=== PATIENT | female | born 1970 | race Caucasian/White ===

== ENCOUNTER 2017-01-09 10:17 | Emergency (ER) | payer OTHER ==
[~2017-01-09] VITALS: Ht 167.6 cm; Wt 63.6 kg
[~2017-01-09 10:17] MED LIST: NO HOME MEDS; ULTRAM 50MG TAB50 MG PO
[2017-01-09 10:25] VITALS: TEMP 98.3
[2017-01-09 11:21] LABS: ADJUSTED CALCIUM 9.5 mg/dL (8.4-10.2); ALANINE AMINOTRANSFERASE 36 U/L (9-52); ALBUMIN 3.9 gm/dL (3.5-5.0); ALKALINE PHOSPHATASE 117 U/L (50-136); ANION GAP 10 mmol/L (7-16); BASO % 0.4 % (0.0-2.0); BILIRUBIN,TOTAL 0.7 mg/dL (0.0-1.0); BLOOD UREA NITROGEN 11 mg/dL (7-17); CALCIUM 9.4 mg/dL (8.4-10.2); CARBON DIOXIDE 27 mmol/L (22-30); CHLORIDE 103 mmol/L (98-107); CREATININE, serum 0.56 mg/dL (0.52-1.25); EOS % 0.6 % (0-4.0); GLUCOSE 102 mg/dL (74-106); GRAN # 3.7 (1.4-6.5); GRAN % 70.3 % (42.2-75.2); HEMOGLOBIN 12.8 g/dl (12.5-16.0); LYMPH # 1.2 (1.2-3.4); LYMPH % 22.8 % (20.0-51.0); MEAN CELL VOLUME 88 fl (80.0-100.0); MEAN CORPUSCULAR HEMOGLOBIN 30 pg (27.0-31.0); MEAN CORPUSCULAR HGB CONC 34 g/dl (33.0-37.0); MEAN PLATELET VOLUME 10.3 fl (7.4-10.4); MONO # 0.3 (0.1-0.6); MONO % 5.5 % (1.7-9.3); PLATELET COUNT 189 K/mm3 (130-400); POTASSIUM 3.7 mmol/L (3.4-5.0); RED BLOOD COUNT 4.34 M/mm3 (4.10-5.30); REDCELL DISTRIBUTION WIDTH-CV 11.4 % (11.5-14.5); SODIUM 140 mmol/L (137-145); TOTAL PROTEIN 6.7 gm/dL (6.4-8.2); WHITE BLOOD COUNT 5.3 K/mm3 (4.8-10.8)
[2017-01-09 11:22] LABS: C-REACTIVE PROTEIN < 0.5 mg/dL (0.0-0.9); INR 1.1 (0.8-3.0)
[2017-01-09 11:25] LABS: PARTIAL THROMBOPLASTIN TIME 34.8 SECONDS (26.0-37.0)
[2017-01-09 12:09] LABS: PH 8 (5-8); SQUAMOUS EPITHELIAL None Seen /hpf; URINE APPEARANCE Clear; URINE BACTERIA None Seen /hpf; URINE BILIRUBIN Negative (NEGATIVE); URINE BLOOD Negative (NEGATIVE); URINE COLOR Straw; URINE GLUCOSE Negative (NEGATIVE); URINE KETONE Trace (NEGATIVE); URINE RBC 0-2 /hpf; URINE UROBILINOGEN Negative (NEGATIVE); URINE WBC 0-2 /hpf
[2017-01-09 13:33] LABS: TROPONIN-I < 0.012 ng/mL (0.000-0.034)
[2017-01-09] MEDS ORDERED: INDERAL 20MG20 MG PO (14:32)
[2017-01-09 15:13] VITALS: BP 111/58; PULSE 104
== END 2017-01-09 15:15 | disposition home or self-care (01) ==
LOC: COL.ER 10:17
PROVIDERS: Emergency Medicine
DX: E05.90 Thyrotoxicosis, unspecified without thyrotoxic crisis or storm (principal); R07.9 Chest pain, unspecified
CPT/HCPCS: J7030; Q9967

== ENCOUNTER 2020-01-17 22:00 | Emergency (ER) | payer BC ==
[~2020-01-17] VITALS: Ht 165.1 cm; Wt 75.0 kg
[~2020-01-17 22:00] MED LIST changes: +INDERAL 20MG20 MG PO
[2020-01-17 22:07] VITALS: TEMP 98.2
[2020-01-17 22:50] LABS: BASO % 0.4 % (0.0-2.0); EOS # 0.1 (0.0-0.7); EOS % 1.7 % (0-4.0); GRAN # 6.3 (1.4-6.5); GRAN % 74.6 % (42.2-75.2); HEMATOCRIT 41.3 % (37.0-47.0); HEMOGLOBIN 13.9 g/dl (12.5-16.0); LYMPH # 1.4 (1.2-3.4); LYMPH % 16.3 % (20.0-51.0); MEAN CELL VOLUME 93 fl (80.0-100.0); MEAN CORPUSCULAR HEMOGLOBIN 31 pg (27.0-31.0); MEAN CORPUSCULAR HGB CONC 34 g/dl (33.0-37.0); MEAN PLATELET VOLUME 10.3 fl (7.4-10.4); MONO # 0.6 (0.1-0.6); MONO % 6.6 % (1.7-9.3); PLATELET COUNT 220 K/mm3 (130-400); RED BLOOD COUNT 4.44 M/mm3 (4.10-5.30); REDCELL DISTRIBUTION WIDTH-CV 11.9 % (11.5-14.5)
[2020-01-17 23:02] LABS: ALANINE AMINOTRANSFERASE 14 U/L (4-34); ALBUMIN 4.5 gm/dL (3.5-5.0); ALKALINE PHOSPHATASE 94 U/L (50-136); ANION GAP 7 mmol/L (7-16); AST,SGOT 27 U/L (15-37); BILIRUBIN,TOTAL 0.4 mg/dL (0.0-1.0); BLOOD UREA NITROGEN 16 mg/dL (7-17); CALCIUM 9.4 mg/dL (8.4-10.2); CARBON DIOXIDE 26 mmol/L (22-30); CHLORIDE 104 mmol/L (98-107); CREATININE, serum 0.74 (0.52-1.25); GLUCOSE 108 mg/dL (74-106); POTASSIUM 3.9 mmol/L (3.4-5.0); SODIUM 138 mmol/L (137-145); TOTAL PROTEIN 7.9 gm/dL (6.4-8.2)
[2020-01-17 23:12] LABS: C-REACTIVE PROTEIN < 0.5 mg/dL (0.0-0.9)
[2020-01-18 00:39] VITALS: BP 121/70; PULSE 89
== END 2020-01-18 00:54 | disposition home or self-care (01) ==
LOC: COL.ER 22:00
PROVIDERS: Physician Assistant
DX: E03.9 Hypothyroidism, unspecified (principal); R07.89 Other chest pain
CPT/HCPCS: J7030

== ENCOUNTER → 2021-06-17 | Outpatient (CLI) | payer BC ==
[~2021-06-17] MED LIST changes: +NORCO 325 MG-51 TAB PO
== END ==
LOC: MC.RAD 13:00 → COL.RAD 06-18 06:30
DX: C50.411 Malignant neoplasm of upper-outer quadrant of right female breast (principal); Z17.0 Estrogen receptor positive status [ER+]
CPT/HCPCS: C1769

== ENCOUNTER 2021-06-18 09:24 | Day surgery (SDC) | payer BC ==
[~2021-06-18] VITALS: Ht 166.4 cm; Wt 76.5 kg
[~2021-06-18 09:24] MED LIST changes: -NORCO 325 MG-51 TAB PO
[2021-06-18 11:27] VITALS: BP 110/76; PULSE 73; TEMP 97.6
[2021-06-18] MEDS ORDERED: NORCO 325 MG-51 TAB PO (13:26)
[2021-06-18 15:50] VITALS: BP 122/66; PULSE 83; TEMP 97.8
--- NOTE | 2021-06-18 15:50 | NUR ---
Pt returns to PACU from [facility], drowsy but easily arousable. VSS. Denies pain or nausea. at bedside. Call light in reach, side rails up x2, exofen dressing clean and dry x2.
[2021-06-18 16:05] VITALS: BP 114/56; PULSE 72
--- NOTE | 2021-06-18 16:05 | NUR ---
Pt drowsy but awakens easily and denies needs, slightly shaky and warm blanket provided.
[2021-06-18 16:20] VITALS: BP 120/56; PULSE 71
--- NOTE | 2021-06-18 16:20 | NUR ---
Pt now reports she is hot, blanket removed, given apple juice and crackers. VSS. Denies pain or nausea. Call light in reach.
[2021-06-18 16:35] VITALS: BP 115/61; PULSE 77
--- NOTE | 2021-06-18 16:35 | NUR ---
Pt doing well, denies needs.
[2021-06-18 16:50] VITALS: BP 113/66; PULSE 73
--- NOTE | 2021-06-18 16:55 | NUR ---
Discharge instructions provided and IV discontinued to left hand. Pt going to get dressed and use the bathroom.
--- NOTE | 2021-06-18 17:12 | NUR ---
Pt up to the bathroom and voids without difficulty. Gets dressed and taken out via wheelchair at 1720 and left in care of her .
== END 2021-06-18 17:20 | disposition home or self-care (01) ==
LOC: SDCO 09:24
DX: C50.411 Malignant neoplasm of upper-outer quadrant of right female breast (principal); E03.9 Hypothyroidism, unspecified; J30.9 Allergic rhinitis, unspecified; Z90.710 Acquired absence of both cervix and uterus; Z20.822 Contact with and (suspected) exposure to COVID-19; Z79.899 Other long term (current) drug therapy; Z80.3 Family history of malignant neoplasm of breast; Z80.0 Family history of malignant neoplasm of digestive organs; Z83.3 Family history of diabetes mellitus
CPT/HCPCS: A4648; A9541; J1100; J1885; J2250; J2405; J2704; J3010; J7120

== ENCOUNTER 2021-09-16 04:19 | Emergency (ER) | payer BC ==
[~2021-09-16 04:19] MED LIST changes: +NORCO 325 MG-51 TAB PO
[2021-09-16 05:12] LABS: BASO % 0.6 % (0.0-2.0); EOS # 0.2 K/mm3 (0.0-0.7); EOS % 3.7 % (0.0-4.0); GRAN # 3.2 K/mm3 (1.4-6.5); GRAN % 65.1 % (42.2-75.2); HEMATOCRIT 40.9 % (37.0-47.0); HEMOGLOBIN 13.8 g/dl (12.5-16.0); LYMPH % 20.2 % (20.0-51.0); MEAN CELL VOLUME 91 fl (80.0-100.0); MEAN CORPUSCULAR HEMOGLOBIN 31 pg (27-31); MEAN CORPUSCULAR HGB CONC 34 g/dl (33.0-37.0); MEAN PLATELET VOLUME 9.9 fl (7.4-10.4); MONO # 0.5 K/mm3 (0.1-0.6); PLATELET COUNT 205 K/mm3 (130-400); RED BLOOD COUNT 4.48 M/mm3 (4.10-5.30); REDCELL DISTRIBUTION WIDTH-CV 11.9 % (11.5-14.5)
[2021-09-16 05:46] LABS: ALANINE AMINOTRANSFERASE 14 U/L (0-55); ALKALINE PHOSPHATASE 88 U/L (40-150); ANION GAP 11 mmol/L (7-16); AST,SGOT 16 U/L (5-34); BILIRUBIN,TOTAL 0.3 mg/dL (0.2-1.2); BLOOD UREA NITROGEN 21 mg/dL (10-20); CALCIUM 8.9 mg/dL (8.4-10.2); CARBON DIOXIDE 22 mmol/L (22-29); CHLORIDE 108 mmol/L (98-107); CREATININE, serum 0.84 mg/dL (0.57-1.11); GLUCOSE 100 mg/dL (70-99); POTASSIUM 3.9 mmol/L (3.5-4.5); SODIUM 141 mmol/L (136-145); TOTAL PROTEIN 7.2 gm/dL (6.2-8.1)
[2021-09-16 05:53] LABS: TROPONIN-I < 0.010 ng/mL (0.00-0.033)
[2021-09-16 07:28] VITALS: BP 122/64; PULSE 85
== END 2021-09-16 07:36 | disposition home or self-care (01) ==
LOC: COL.ER 04:19
PROVIDERS: Personal Emergency Response Attendant
DX: M54.2 Cervicalgia (principal); M25.519 Pain in unspecified shoulder; Z85.3 Personal history of malignant neoplasm of breast; Z79.1 Long term (current) use of non-steroidal anti-inflammatories (NSAID)